=== PATIENT | female | born 1990 | race Caucasian/White ===

== ENCOUNTER → 2018-10-29 16:25 | Outpatient (CLI) | payer SELFPAY ==
[2018-10-29 17:37] LABS: Color, Urine Yellow (Yellow); Glucose, Dipstick Normal (Normal); Ketone-Dipstick 5 mg/dl (Negative); Leukocyte Esterase-Dipstick Negative /ul (Negative); Nitrite-Dipstick Negative (Negative); Occult Blood-Urine Negative /ul (Negative); Protein-Dipstick 15 mg/dl (Negative); Specific Gravity, Urine 1.025 (1.002-1.030); Urine Bilirubin Dipstick Negative (Negative); Urine Clarity Clear (Clear); Urine Urobilinogen Normal (Normal)
[2018-10-29 17:48] LABS: Absolute Lymphocyte Count 1.78 X10^3/ul (0.83-4.51); Absolute Neutrophil Count 6.6 X10^3/uL (2.0-7.7); Basophil# 0.02 X10^3/uL; Basophil% 0.2 % (0-1); Differential Indicated SCAN CRITERIA MET; Eosinophil# 0.14 X10^3/uL; Eosinophils% 1.6 % (0-5); Hematocrit 33.5 % (37-47); Hemoglobin 10.1 g/dl (12.0-15.0); Lymphocyte # 1.78 X10^3/ul (4.0); Lymphocyte % 19.9 % (19-41); Mean Corp Hgb Conc 30.1 g/gl (32-36); Mean Corpuscular Hgb 21.2 pg (27.0-32.0); Mean Corpuscular Volume 70.2 fL (81-99); Mean Platelet Vol. 10.4 fl (6.2-12.0); Monocyte# 0.44 X10^3/uL; Monocyte% 4.9 % (0-10); Neutrophil # 6.55 X10^3/uL (2.7-7.7); Neutrophil % 73.1 % (47-70); POSITIVE COUNT NO; POSITIVE DIFFERENTIAL NO; POSITIVE MORPHOLOGY YES; Platelet Count 294 K/mm3 (150-450); RBC Distribution Width CV 16.5 % (11.6-14.6); RBC Distribution Width SD 41.9 fl (35.1-43.9); Red Blood Count 4.77 M/mm3 (4.2-5.4)
[2018-10-29 17:58] LABS: Thyroid Stim Hormone (TSH) 2.03 uIU/mL (0.358-3.74)
[2018-10-29 18:39] LABS: HIV - WCH Non-Reactive (Nonreactive); Rubella IgG 57.6 IU/mL
[2018-10-29 19:02] LABS: Differential Comment SCANNED
[2018-10-29 19:03] LABS: Hypochromasia RARE; Ovalocyte RARE
[2018-10-29 20:01] LABS: Chlamydia Trachomatis by PCR Negative (Negative); Neisserai gonorrhoeae by PCR Negative (Negative); Probe Check PASS; Sample Adequacy Control PASS; Specimen Processing Control PASS
[2018-10-31 07:39] LABS: Prenatal RPR NONREACTIVE (NONREACTIVE)
[2018-10-31 11:09] LABS: HEPATITIS B SURFACE AG Negative (Negative); Hep C Antibodies <0.1 s/co ratio (0.0-0.9)
== END ==
PROVIDERS: Visit Provider Obstetrics & Gynecology
DX: Z34.82 Encounter for supervision of other normal pregnancy, second trimester (principal)
CPT/HCPCS: 36415; 81002; 84443; 85025; 86703; 86762; 86803; 87340; 87491; 87591

== ENCOUNTER → 2019-01-20 10:09 | Outpatient (CLI) | payer MEDICAID, SELFPAY ==
[2019-01-20 11:46] LABS: Glucose GTT-Gestation. Fasting 91 mg/dL (<105)
[2019-01-20 11:57] LABS: Glucose GTT-Gestational 1 Hr 180 mg/dL (<190)
[2019-01-20 13:05] LABS: Glucose GTT-Gestational 2 Hr 196 mg/dL (<165)
[2019-01-20 15:36] LABS: Glucose GTT-Gestational 3 Hr 140 L (<145)
== END ==
PROVIDERS: Family Provider Family Medicine; PCP Family Medicine; Referring Provider Obstetrics & Gynecology; Visit Provider Obstetrics & Gynecology
DX: O24.912 Unspecified diabetes mellitus in pregnancy, second trimester (principal); Z3A.00 Weeks of gestation of pregnancy not specified
CPT/HCPCS: 36415; 82951; 82952

== ENCOUNTER → 2019-02-05 17:24 | Outpatient (CLI) | payer MEDICAID, SELFPAY | PROVIDERS: Visit Provider Obstetrics & Gynecology | DX: Z36.85 Encounter for antenatal screening for Streptococcus B (principal) | CPT/HCPCS: 87081 ==

== ENCOUNTER 2019-03-01 05:20 | Inpatient (IN) | payer MEDICAID, SELFPAY ==
[2019-02-28 22:19] VITALS: BMI 28.5
[2019-03-01] MEDS: Lactated Ringers 1,000 ML 50 ML IV ×4 (05:50→14:05)
[2019-03-01 06:19] LABS: Hematocrit 24.7 % (37-47); Hemoglobin 7.2 g/dl (12.0-15.0); Red Blood Count 3.98 M/mm3 (4.2-5.4); White Blood Count 13.5 K/mm3 (4.4-11.0)
[2019-03-01 06:20] LABS: Absolute Lymphocyte Count 2.34 X10^3/ul (0.83-4.51); Absolute Neutrophil Count 10.2 X10^3/uL (2.0-7.7); Basophil# 0.03 X10^3/uL; Basophil% 0.2 % (0-1); Differential Indicated SCAN CRITERIA MET; Eosinophil# 0.03 X10^3/uL; Eosinophils% 0.2 % (0-5); Lymphocyte # 2.34 X10^3/ul (4.0); Lymphocyte % 17.4 % (19-41); Mean Corp Hgb Conc 29.1 g/gl (32-36); Mean Corpuscular Hgb 18.1 pg (27.0-32.0); Mean Corpuscular Volume 62.1 fL (81-99); Mean Platelet Vol. 10.7 fl (6.2-12.0); Monocyte# 0.83 X10^3/uL; Monocyte% 6.2 % (0-10); Neutrophil # 10.16 X10^3/uL (2.7-7.7); Neutrophil % 75.5 % (47-70); POSITIVE COUNT NO; POSITIVE DIFFERENTIAL NO; POSITIVE MORPHOLOGY YES; Platelet Count 269 K/mm3 (150-450); RBC Distribution Width CV 18.6 % (11.6-14.6); RBC Distribution Width SD 39.7 fl (35.1-43.9)
[2019-03-01 06:54] LABS: Anisocytosis 1+; Differential Comment SCAN; Platelet Estimate ADEQUATE (ADEQ)
[2019-03-01 06:55] LABS: Hypochromasia 1+; Microcytosis 1+; Platelet Morphology LARGE; Polychromasia 1+
[2019-03-01] MEDS: fentaNYL-bupivacaine (epidural) 100 ML BAG EPIDURAL ×2 (07:10→12:00)
[2019-03-01 08:00] LABS: Amphetamine Urine VISTA NEGATIVE (<1000 ng/mL); Barbiturate Urine VISTA NEGATIVE (< 200 ng/mL); Benzodiazepine Urine VISTA NEGATIVE (< 200 ng/mL); Cocaine Urine VISTA NEGATIVE (< 300 ng/mL); Ecstacy Urine VISTA NEGATIVE (< 500 ng/mL); Methadone Urine VISTA NEGATIVE (< 300 ng/mL); PCP Urine VISTA NEGATIVE (< 25 ng/mL); THC Urine VISTA NEGATIVE (< 50 ng/mL); Vista UDS pH Range 5
[2019-03-01] MEDS: Oxytocin 30 units/NS 500 ml 30 UNITS/500 ML IV.SOLN IV (12:00)
[2019-03-01] MEDS: Oxytocin 30 units/NS 500 ml 30 UNITS/500 ML IV.SOLN 334 UNITS IV (14:32)
--- NOTE | 2019-03-01 14:42 | PCM.OPRPT ---
Vaginal Delivery Maternal Presentation: Active Labor Amniotic Membrane Rupture Type: Artificial Amniotic Fluid Description: Clear Final BELKIS: 03/05/19 Final BELKIS Source: US >20 weeks Gestational age: 39 Weeks and 3 Days Date of Procedure: 03/01/19 Pre-Operative Diagnosis: IUP Post-Operative Diagnosis: IUP Surgery/ Procedure Performed: Vacuum Assisted Vaginal Delivery Type of Anesthesia: Epidural Description of Procedure: Spontaneous vaginal delivery of a viable male with Apgars of 8/9 from an occiput anterior presentation with clear amniotic fluid and normal three-vessel placenta. No episiotomy. Second-degree midline laceration repaired with 3-0 Rapide suture. There was also a 2 cm left labial laceration repaired with interrupted 3-0 Rapide suture. Kiwi vacuum used x1 gentle pull from low outlet to expedite delivery of the head after 1 hour of pushing and increasing maternal fatigue. Sponges okay. Delivery physician: Madhav Alanis MD. Presentation: Vertex Placental Delivery Description: Spontaneous Placenta Disposition: [facility] Cord Vessel Description: 3 Vessels Cord Gases drawn per routine: ABG Cord Entanglement: None Estimated Blood Loss: 250 cc Infant A gender: Male (1 minute): 8 (5 minute): 9 Episiotomy Description: None Laceration: Midline, 2nd degree - Additional 2 cm left labial laceration Medications given after delivery: IV Pitocin Complications: None
--- NOTE | 2019-03-01 14:46 | PCM.DCVAG ---
Discharge Diet: No Restrictions Discharge Activity: May Shower, May Take a Tub Bath Call your doctor if you observe: Fever of 101 or Higher, Inability to urinate, Inability to have a bowel movement, Using more than one pad per hour Additional Instructions: If you experience any of the following, contact your healthcare provider. Bleeding that soaks a pad every hour for 2 hours Unrelieved incision or abdominal pain Swelling, redness, discharge or bleeding from your incision or episiotomy site Your incision begins to separate Problems urinating (including inability to urinate or burning while urinating). Visual changes Severe headache Flu-like symptoms Pain or redness in one of both of your breasts Pain, warmth, tenderness or swelling in your legs, especially the calf area Frequent nausea and vomiting Symptoms of depression or anxiety If you experience any of the following, call 911 or go to the nearest Emergency Room. Chest pain Problems breathing Seizure activity Partial or complete paralysis of a body part, slurred speech, weakness or drooping of the face, or a sudden inability to walk or hold your balance Allergies/Adverse Reactions: Allergies No Known Allergies Allergy (Verified 02/28/19 22:20) Medications to take at Discharge Ferrous Sulfate [Iron] 325 mg PO DAILY 02/28/19 Please Follow Up With: Madhav Alanis MD When: Call the office for an appointment in 6 weeks for your checkup. Primary Care Physician: Madhav Hinojosa [Primary Care Provider] - Test Results: Test results from this visit will be discussed in further detail at your follow-up appointment, if applicable.
--- NOTE | 2019-03-01 14:48 | DCINST_ITS ---
Discharge Diet: No Restrictions Discharge Activity: May Shower, May Take a Tub Bath Call your doctor if you observe: Fever of 101 or Higher, Inability to urinate, Inability to have a bowel movement, Using more than one pad per hour Additional Instructions: If you experience any of the following, contact your healthcare provider. * Bleeding that soaks a pad every hour for 2 hours * Unrelieved incision or abdominal pain * Swelling, redness, discharge or bleeding from your incision or episiotomy site * Your incision begins to separate * Problems urinating (including inability to urinate or burning while urinating). * Visual changes * Severe headache * Flu-like symptoms * Pain or redness in one of both of your breasts * Pain, warmth, tenderness or swelling in your legs, especially the calf area * Frequent nausea and vomiting * Symptoms of depression or anxiety If you experience any of the following, call 911 or go to the nearest Emergency Room. * Chest pain * Problems breathing * Seizure activity * Partial or complete paralysis of a body part, slurred speech, weakness or drooping of the face, or a sudden inability to walk or hold your balance Allergies/Adverse Reactions: Allergies No Known Allergies Allergy (Verified 02/28/19 22:20) Medications to take at Discharge Ferrous Sulfate [Iron] 325 mg PO DAILY 02/28/19 Please Follow Up With: Madhav Alanis MD When: Call the office for an appointment in 6 weeks for your checkup. Primary Care Physician: Madhav Hinojosa [Primary Care Provider] - Test Results: Test results from this visit will be discussed in further detail at your follow- up appointment, if applicable.
[2019-03-01] MEDS: Oxytocin 30 units/NS 500 ml 30 UNITS/500 ML IV.SOLN 167 UNITS IV (15:02)
[2019-03-01] MEDS: Ibuprofen 600 MG Tablet PO (15:23)
[2019-03-01] MEDS: 0.9% Saline Lock 10 ML Syringe IV (16:10)
[2019-03-01 17:01] VITALS: BP 116/63; PULSE 103; RESP 16; TEMP 37.1; O2SAT 98
[2019-03-01 20:21] VITALS: BP 117/62; PULSE 82; RESP 16; TEMP 36.8
[2019-03-01] MEDS: oxyCODONE 5 MG Tablet PO (20:24)
[2019-03-02 00:30] VITALS: BP 108/58; PULSE 90; RESP 18; TEMP 36.8
[2019-03-02] MEDS: Ibuprofen 600 MG Tablet PO ×2 (01:16→10:42)
[2019-03-02 04:42] VITALS: BP 109/62; PULSE 87; RESP 18; TEMP 36.8
[2019-03-02] MEDS: Acetaminophen 500 MG Tablet 1000 MG PO (04:53)
[2019-03-02 08:45] VITALS: BP 102/56; PULSE 82; RESP 18; TEMP 36.4
[2019-03-02] MEDS: Senna/Docusate Sodium 1 Tablet PO (10:42)
--- NOTE | 2019-03-02 11:11 | PCM.PN.OB ---
Subjective: Patient without complaints. Breast-feeding going well. Wants to go home later today if baby is able to go home. - Physical Exam Vital Signs Temp Pulse Resp BP Pulse Ox 98.2 F 87 18 109/62 98 03/02/19 04:42 03/02/19 04:42 03/02/19 04:42 03/02/19 04:42 03/01/19 17:01 Oxygen Delivery Method Room Air Weight: 151 lb Body Mass Index (BMI) 28.5 Intake and Output for Last 24 Hours 02/28/19 03/01/19 03/02/19 23:59 23:59 23:59 Intake Total 3697 / 3697 Output Total 1375 / 1375 375 / 375 Balance 2322 / 2322 -375 / -375 Medical Necessity - Tobacco Use Smoking Status: Never smoker Assessment/Plan Doing well day #1 status post routine spontaneous vaginal delivery. Will discharge home later today if baby is able to be discharged. Routine instructions given.
[2019-03-02 12:30] VITALS: BP 117/79; PULSE 90; RESP 18; TEMP 36.4
--- NOTE | 2019-03-02 14:11 | CASEMGMT ---
Social Work: Met with MOB and FOB in room. Introduced self and the role of the social insurance adviser. FOB and MOB have been for 5 years and have 3 other children in the home (McKaya-4, Clinton-2, Alla-1). Current baby boy (Jossue) born on [birth year] at 1416. MOB received late care as mother states she did not know she was until 30 weeks. FOM, MOB and children live in a home that they rent. MOB has support from maternal mother and paternal sister. MOB also states that she will have help with the children in the home from a neighbor. MOB states that they also have support from their [facility]ian[facility] FOUrsula is a mechanic industrial truck and states that he does not have a delivery until morning. FOM and MOB own a vehicle and do not have transportation concerns. Family ,including all children, are currently on Medicaid and have no other services at this time. MOB states that all needed baby supplies are already in the home including car seat. MOB is and states that it is going well. MOB admits to feeling down and out occasionally after the of the last baby (1 year old). QUIANA did not receive counseling at that time but states her mother was very supportive. MOB indicates when I had enough sleep I was fine. MOB answered yes to both questions on the PHQ-2 assessment and RN gave MOB the PHQ-9 assessment. MOB verbalized openly with this SW and accepted written information on services. Verbal report given to Mi Harrington RN. Interventions: 1) Written information including contact information on WIC in [facility] provided. 2) Written list of counseling services in [facility] provided. 3) Written information on depression provided. 4) Supportive counseling as well as active listening provided. 5) Encouragement to verbalize emotions to others when feeling down and out. PLAN: FOB, MOB and to return home at D/C with support of family and neighbors, written information on resources and name and number of this SW given if additional needs/questions arise.
== END 2019-03-02 17:45 | disposition home or self-care (01) | DRG 560 ==
LOC: WPOUT 05:23
PROVIDERS: Admitting Provider Obstetrics & Gynecology; Family Provider Family Medicine; PCP Family Medicine; Referring Provider Obstetrics & Gynecology; Visit Provider Obstetrics & Gynecology
DX: O70.1 Second degree perineal laceration during delivery (principal); O26.813 Pregnancy related exhaustion and fatigue, third trimester; O99.613 Diseases of the digestive system complicating pregnancy, third trimester; K21.9 Gastro-esophageal reflux disease without esophagitis; Z3A.39 39 weeks gestation of pregnancy; Z37.0 Single live birth
CPT/HCPCS: 59025; 59050; 80307; 85025; 86850; 86900; 99218; J7120; A4216; G0378

== ENCOUNTER → 2020-07-27 | Outpatient (CLI) | payer MEDICAID, SELFPAY ==
[2019-02-28 22:19] VITALS: BMI 28.5
[2020-07-29 20:27] LABS: HPV Reflexed? NOT INDICATED
== END | disposition home or self-care (01) ==
LOC: LABSPEC 10:19
PROVIDERS: PCP Family Medicine; Visit Provider Obstetrics & Gynecology
DX: Z12.4 Encounter for screening for malignant neoplasm of cervix (principal)
CPT/HCPCS: 88175; G0145